=== PATIENT | female | born 2000 | race Caucasian/White ===

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

== ENCOUNTER 2019-05-31 08:21 | Emergency (ER) | payer OTHER, SELFPAY ==
--- NOTE | 2019-05-31 10:20 | US ---
EXAM DESCRIPTION: OB ,Early (0-14wks): Ultrasound. CLINICAL HISTORY: 18 years Female no heart tones. Obstetrical history: Unknown. LMP 03/19/2019. EGA 10 weeks and 3 days. JUAN F 08/23/2020. COMPARISON: None. TECHNIQUE: Endovaginal scannin-dimensional and Doppler modes. FINDINGS: Uterus: Cervix unremarkable. Gestational sac: Oval-shaped with in the remaining around the pole and implantation site. AFV: Subjectively normal. pole: Mean length 8.8 mm. Corresponds to EGA 6 weeks and 6 days. Yolk sac: Not well seen. Subchorionic hemorrhage: Not seen. heart tones: None. Cul-de-sac: No fluid. Comments: demise 6 weeks and 6 days, almost 4 weeks younger than EGA by menstrual dates. Right ovary 3.0 x 2.9 x 2.0 cm. Normal color Doppler vascularity. No dominant cyst.. No adnexal mass or free fluid. Left ovary 3.7 x 3.4 x 1.9 cm.Normal and color Doppler vascularity. No dominant cyst. No adnexal mass or free fluid. IMPRESSION: 1. Single demise with EGA 6 weeks and 6 days. This is almost 4 weeks younger than EGA by LMP. No free fluid. Bilateral ovaries unremarkable with no dominant cyst or solid mass. CRITICAL COMMUNICATION: The critical value was discussed directly by phone with Dr. Eliseo Villalobos, Emergency Medicine Department at approximately 1015 hours, on 05/31/2019. Electronically signed by: Ramo Pierson MD 05/31/2019 10:18 AM CDT
[2019-05-31 10:34] VITALS: BP 126/80; O2SAT 96
--- NOTE | 2019-05-31 10:51 | ED.PDOC ---
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 Menstrual dates she is approximately 10 weeks gestational age. Minimal cramping. Bleeding is mild. She found out she was 2 or 3 weeks ago. No trauma. She does not know her blood type. She is set up to see her practice clinician for the first time tomorrow.she reports this is her first . Timing/Duration: 4-6 hours Severity: mild Improving Factors: nothing Worsening Factors: nothing Associated Symptoms: denies symptoms Allergies/Adverse Reactions: Allergies NO KNOWN ALLERGY Allergy (Verified 05/22/18 23:39) Home Medications: Ambulatory Orders Desvenlafaxine Succinate [Pristiq] 50 mg PO 10/26/15 Afkzmjnymapeh-Hkny-Fnsfcpjubd [Fioricet] 1 ea PO Q8H PRN #10 tab 05/31/19 Review of Systems - Review of Systems Constitutional: States: no symptoms reported EENTM: States: no symptoms reported Respiratory: States: no symptoms reported Cardiology: States: no symptoms reported Gastrointestinal/Abdominal: States: no symptoms reported Genitourinary: States: other Musculoskeletal: States: no symptoms reported Skin: States: no symptoms reported Neurological: States: no symptoms reported All other Systems: No Change from Baseline Past Medical History (General) - Patient Medical History Hx Seizures: No Hx Stroke: No Hx Dementia: No Hx Asthma: Yes - seasonal Hx of COPD: No Hx Cardiac Disorders: No Hx Congestive Heart Failure: No Hx Pacemaker: No Hx Hypertension: No Hx Thyroid Disease: No Hx Diabetes: No Hx Gastroesophageal Reflux: No Hx Renal Disease: No Hx Cancer: No Hx of HIV: No Hx Hepatitis C: No Hx MRSA: No Surgical History: appendectomy - Vaccination History Hx Tetanus, Diphtheria Vaccination: No Hx Influenza Vaccination: No - Social History Hx Tobacco Use: Yes Hx Alcohol Use: No Hx Substance Use: Yes - marijuana Hx Depression: Yes - Female History Hx Last Menstrual Period: 03/19/19 Patient : Yes Expected Date of Delivery:: 08/23/19 Family Medical History - Family History Mother Family History: Unknown Living Status: Still Living Hx Family Diabetes: Yes Physical Exam - Physical Exam General Appearance: Alert, Comfortable, No apparent distress Eye Exam: bilateral normal Ears, Nose, Throat: normal ENT inspection Neck: full range of motion Respiratory: no respiratory distress, no accessory muscle use Cardiovascular/Chest: normal peripheral pulses, no edema, other - regular rate Peripheral Pulses: radial,right: 2+, radial,left: 2+, dorsalis pedis,right: 2+, dorsalis pedis,left: 2+ Gastrointestinal/Abdominal: non tender, soft Rectal Exam: deferred Back Exam: no CVA tenderness, no vertebral tenderness Extremity: non-tender, normal inspection, no pedal edema, normal capillary refill 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, alert, normal mood/affect, oriented x 3 Skin Exam: normal color Comments: Vital Signs - 8 hr 05/31/19 05/31/19 05/31/19 08:29 09:25 10:00 Temperature 99.1 F Pulse Rate [ 88 67 71 left brachial] Respiratory 16 20 20 Rate Blood Pressure 130/73 130/97 118/73 [left brachial] O2 Sat by Pulse 96 99 96 Oximetry 05/31/19 10:30 Temperature Pulse Rate [ 96 H left brachial] Respiratory 16 Rate Blood Pressure 126/80 [left brachial] O2 Sat by Pulse 96 Oximetry Progress - Progress Progress: 05/31/19 10:51 the patient is a 18-year-old female presenting to the emergency room secondary to vaginal bleeding in the first trimester. Ultrasound here shows intrauterine demise at approximately 7 weeks gestational age by size. Blood type is B+. CBC is within normal limits. Quantitative hCG is 27,000. The patient is undergoing a miscarriage, that has not yet completed. No further intervention is warranted at this time. He will likely pass naturally without significant difficulty. She will be written for some Fioricet for as needed use for any discomfort. I would encourage her to keep her follow-up with her practice clinician tomorrow. ER warnings were given. - Results/Orders Results/Orders: Laboratory Tests 05/31/19 05/31/19 05/31/19 09:00 09:00 09:00 WBC 6.1 RBC 4.82 Hgb 13.3 Hct 39.8 MCV 82.6 MCH 27.6 MCHC 33.3 RDW 15.6 H Plt Count 174 MPV 8.6 Absolute Neuts (auto) 3.70 Absolute Lymphs (auto) 1.50 Absolute Monos (auto) 0.60 Absolute Eos (auto) 0.30 Absolute Basos (auto) 0.00 Neutrophils % 61.6 Lymphocytes % 24.6 Monocytes % 9.1 H Eosinophils % 4.2 Basophils % 0.5 Beta HCG, Quant 28421.0 H Patient ABO/Rh B POSITIVE Departure - Departure Clinical Impression: Incomplete miscarriage Disposition: Discharge to Home or Self Care Condition: Fair Departure Forms: ED Discharge - Pt. Copy, Patient Portal Self Enrollment Instructions: Dealing With Miscarriage, DI for Miscarriage Diet: regular diet Activity: other - pelvic rest for 3 weeks and avoid getting for 3 months. Referrals: Ryley Keenan MD [Primary Care Provider] - 1-2 Days Prescriptions: Qblnctbrhucji-Mzhk-Hwzslvwseg [Fioricet] 1 ea PO Q8H PRN #10 tab PRN Reason: Pain Home Medications: Ambulatory Orders Desvenlafaxine Succinate [Pristiq] 50 mg PO 10/26/15 Ogsaerqtchfmp-Gtol-Rkcaxlmgkb [Fioricet] 1 ea PO Q8H PRN #10 tab 05/31/19 Additional Instructions: the patient is a 18-year-old female presenting to the emergency room secondary to vaginal bleeding in the first trimester. Ultrasound here shows intrauterine demise at approximately 7 weeks gestational age by size. Blood type is B+. CBC is within normal limits. Quantitative hCG is 27,000. The patient is undergoing a miscarriage, that has not yet completed. No further intervention is warranted at this time. He will likely pass naturally without significant difficulty. She will be written for some Fioricet for as needed use for any discomfort. I would encourage her to keep her follow-up with her practice clinician tomorrow. ER warnings were given.
[2019-05-31 11:06] VITALS: TEMP 98.9
== END 2019-05-31 11:05 | disposition home or self-care (01) ==
LOC: ER 08:21
DX: O03.4 Incomplete spontaneous abortion without complication (principal); F32.9 Major depressive disorder, single episode, unspecified; J45.909 Unspecified asthma, uncomplicated; Z87.891 Personal history of nicotine dependence

== ENCOUNTER 2020-02-28 17:30 | Emergency (ER) | payer OTHER ==
--- NOTE | 2020-02-28 17:59 | ED.PDOC ---
History of Present Illness - General Time Seen by Provider: 02/28/20 17:50 Source: patient, RN notes reviewed, Vital Signs reviewed, family Exam Limitations: no limitations - History of Present Illness Initial Comments: Pt is a 19 yo female that is 26 weeks who presents to ED for 3 day h/o right lower back pain that comes and goes. No worse with movement. Denies fall or injury. States she has had naausea. Denies vomiting, fever, dysuria, hematuria, vaginal bleeding or discharge or loss of fluids. States she is feeling the baby moving normally today. She was seen by her OB for this pain this morning and had urine test, vaginal exam which were normal and diagnosed with ligament pain due to increasing size of uterus and recommended to take Tylenol for the pain. States she continued to hurt so came to ED for second opinion. Allergies/Adverse Reactions: Allergies NO KNOWN ALLERGY Allergy (Verified 05/22/18 23:39) Home Medications: Ambulatory Orders Acetaminophen W/ Codeine [Tylenol W/ CODEINE #3] 1 tablet PO Q6H PRN #20 02/28/20 Fe Fumarate-Fe Polysaccharide- [Integra 62.5-62.5-40-3 mg] 02/28/20 Omeprazole [Prilosec Cap] 1 capsule PO DAILY 02/28/20 Vit W/ Ferrous Fumara [] 1 tab PO DAILY 02/28/20 Promethazine Tab [Phenergan Tablet] 25 mg PO Q6H PRN #20 tab 02/28/20 Review of Systems - Review of Systems Constitutional: Denies: chills, fever, weakness EENTM: Denies: nose congestion, throat pain Respiratory: Denies: cough, short of breath Cardiology: Denies: chest pain, palpitations, syncope Gastrointestinal/Abdominal: States: nausea. Denies: abdominal pain, diarrhea Genitourinary: Denies: dysuria, frequency, hematuria Musculoskeletal: States: see HPI, back pain All other Systems: Reviewed and Negative Past Medical History (General) - Patient Medical History Hx Seizures: No Hx Stroke: No Hx Dementia: No Hx Asthma: Yes - seasonal Hx of COPD: No Hx Cardiac Disorders: No Hx Congestive Heart Failure: No Hx Pacemaker: No Hx Hypertension: No Hx Thyroid Disease: No Hx Diabetes: No Hx Gastroesophageal Reflux: No Hx Renal Disease: No Hx Cancer: No Hx of HIV: No Hx Hepatitis C: No Hx MRSA: No - Vaccination History Hx Tetanus, Diphtheria Vaccination: No Hx Influenza Vaccination: No - Social History Hx Tobacco Use: Yes Hx Alcohol Use: No Hx Substance Use: Yes - marijuana Hx Depression: Yes - Female History Hx Last Menstrual Period: 03/19/19 Patient : Yes Expected Date of Delivery:: 08/23/19 Family Medical History - Family History Mother Family History: Unknown Living Status: Still Living Hx Family Diabetes: Yes Physical Exam - Physical Exam General Appearance: Alert, Comfortable, No apparent distress Neck: non-tender, full range of motion, supple Respiratory: chest non-tender, lungs clear, normal breath sounds, no respiratory distress Cardiovascular/Chest: regular rate, rhythm, no edema Gastrointestinal/Abdominal: non tender, soft, other - abdomen is NTTP in all quadrants. Gravid uterus above umbilicus. Back Exam: no CVA tenderness, no vertebral tenderness, other - Mild TTP right lumbar area. Extremity: normal range of motion, non-tender, no pedal edema Neurologic: no motor/sensory deficits, alert, normal mood/affect Skin Exam: warm/dry Progress - Progress Progress: 02/28/20 20:00 Pt is 26 weeks . Has had OB care and US showing IUP this . Presents to ED with 2-3 day h/o right lower back pain and nausea. Seen by her OB today and diagnosed with ligament pain. US performed to evaluate for kidney stone and does show moderate right hydronephrosis. Discussed risks and benefits of CT during and pt elects to not have CT to r/o kidney stone. Her pain is controlled and she feels comfortable going home. I have given her a copy of US report and have asked her to f/u with her OB tomorrow. She will need to f/u with urologist within 1 week for further evaluation. SRP given. - Results/Orders Results/Orders: Renal Ultrasound IMPRESSION: - Moderate right hydronephrosis in the setting of a gravid uterus. Clinical correlation is suggested. morphology not evaluated on this study. Thank you for allowing us to participate in the care of this patient. 02/28/20 18:00 Urine Culture Stat Laboratory Results - last 24 hr 02/28/20 02/28/20 02/28/20 18:00 18:08 18:08 WBC 15.5 H RBC 4.53 Hgb 14.1 Hct 40.1 MCV 88.6 MCH 31.2 H MCHC 35.2 RDW 14.0 Plt Count 179 MPV 8.8 Absolute Neuts (auto) 13.00 H Absolute Lymphs (auto) 1.60 Absolute Monos (auto) 0.80 Absolute Eos (auto) 0.10 Absolute Basos (auto) 0.00 Neutrophils % 83.7 H Lymphocytes % 10.3 L Monocytes % 5.4 Eosinophils % 0.4 L Basophils % 0.2 Sodium 136 Potassium 3.8 Chloride 106 Carbon Dioxide 21 Anion Gap 12.8 BUN 7 Creatinine 0.48 L BUN/Creatinine Ratio 14.6 Random Glucose 91 Serum Osmolality 269.5 L Calcium 9.1 Total Bilirubin 0.6 AST 17 ALT 13 Alkaline Phosphatase 84 Serum Total Protein 7.2 Albumin 3.4 Globulin 3.8 H Albumin/Globulin Ratio 0.9 L Lipase 29 Urine Color Yellow Urine Appearance Clear Urine pH 6.5 Ur Specific [place] >= 1.030 Urine Protein Negative Urine Glucose (UA) Negative Urine Ketones >=160 Urine Blood Trace-intact H Urine Nitrite Negative Urine Bilirubin Negative Urine Urobilinogen 0.2 Ur Leukocyte Esterase Moderate H Urine RBC 5-10 H Urine WBC 10-20 H Ur Epithelial Cells 3-5 Amorphous Sediment 1+ Urine Bacteria 2+ H Urine Mucus Small Departure - Departure Clinical Impression: Hydronephrosis, right, Second trimester , Acute flank pain Time of Disposition: 20:04 Disposition: Discharge to Home or Self Care Condition: Good Instructions: Flank Pain (DC) Diet: resume usual diet Referrals: Ryley Keenan MD [Primary Care Provider] - 1-2 Weeks Prescriptions: Acetaminophen W/ Codeine [Tylenol W/ CODEINE #3] 1 tablet PO Q6H PRN #20 PRN Reason: Pain Promethazine Tab [Phenergan Tablet] 25 mg PO Q6H PRN #20 tab PRN Reason: Nausea Home Medications: Ambulatory Orders Acetaminophen W/ Codeine [Tylenol W/ CODEINE #3] 1 tablet PO Q6H PRN #20 02/28/20 Fe Fumarate-Fe Polysaccharide- [Integra 62.5-62.5-40-3 mg] 02/28/20 Omeprazole [Prilosec Cap] 1 capsule PO DAILY 02/28/20 Vit W/ Ferrous Fumara [] 1 tab PO DAILY 02/28/20 Promethazine Tab [Phenergan Tablet] 25 mg PO Q6H PRN #20 tab 02/28/20 Additional Instructions: Follow up with your OB tomorrow for continued evaluation. You may need to see and urologist within 1 week
[2020-02-28] MEDS ORDERED: ACETAMINOPHEN 325 MG TAB PO ONE (18:03)
[2020-02-28 18:10] VITALS: TEMP 97.8
--- NOTE | 2020-02-28 19:21 | US ---
EXAM: US Retroperitoneal Complete CLINICAL HISTORY: 19 years old Female; right flank pain. TECHNIQUE: Real-time complete ultrasound of the retroperitoneum with image documentation. COMPARISON: No relevant prior studies available. FINDINGS: AORTA: No aneurysm. COMMON ILIAC ARTERIES: Not visualized. INFERIOR VENA CAVA: Not visualized. RIGHT KIDNEY: Right kidney measures 11.1 x 5.7 x 4.5 cm and demonstrates moderate hydronephrosis. No renal stone or renal mass identified. LEFT KIDNEY: Left kidney measures 10.1 x 5.0 x 4.5 cm. No renal mass, renal stone or hydronephrosis seen. BLADDER: Urinary bladder virtually empty at the time of scanning and poorly evaluated. OTHER FINDINGS: Noted incidentally is a gravid uterus. IMPRESSION: - Moderate right hydronephrosis in the setting of a gravid uterus. Clinical correlation is suggested. morphology not evaluated on this study. Thank you for allowing us to participate in the care of this patient. Electronically signed by: Abraham Galvin MD 02/28/2020 7:20 PM CDT
[2020-02-28 20:29] VITALS: O2SAT 99
[2020-02-28 20:30] VITALS: BP 123/71
== END 2020-02-28 20:29 | disposition home or self-care (01) ==
LOC: ER 17:30
DX: O99.89 Other specified diseases and conditions complicating pregnancy, childbirth and the puerperium (principal); N13.30 Unspecified hydronephrosis; O99.332 Smoking (tobacco) complicating pregnancy, second trimester; F17.210 Nicotine dependence, cigarettes, uncomplicated; Z3A.26 26 weeks gestation of pregnancy